=== PATIENT | female | born 1985 | race American Indian/Alaskan Native ===

== ENCOUNTER 2019-07-21 16:14 | Emergency (ER) | payer SELFPAY ==
[2019-07-21] MEDS ORDERED: IBUPROFEN 600 MG TAB PO ONE (17:54)
--- NOTE | 2019-07-21 17:56 | Emergency Department Report ---
Chief Complaint: Upper Respiratory Infection Stated Complaint: FLU SYM Time Seen by Provider: 07/21/19 17:48 - HPI History of Present Illness: 34 y.o. F. that presents to the ER with myalgia, fever, chills, and cough since yesterday. States 2 youngest children are sick with similar symptoms. Took OTC cold and flu medication for 1 day. Reports cough as dry. No significant PMH. Denies chest pain, SOB, wheezing, n/v/d, abdominal pain, or sore throat. - ROS Review of Systems: ROS: Stated complaint: Flu like symptoms Other details as noted in HPI Comment: All other systems reviewed and negative - Exam Vital Signs: Vital Signs 07/21/19 16:21 Temperature 100.0 F H Pulse Rate 128 H Respiratory 18 Rate Blood Pressure 108/71 O2 Sat by Pulse 97 Oximetry Vital Signs 07/21/19 07/21/19 07/21/19 16:21 17:53 19:30 Temperature 100.0 F H 101 F H 99 F Pulse Rate 128 H 113 H 100 H Respiratory 18 16 20 Rate Blood Pressure 108/71 Blood Pressure 139/76 [Left] O2 Sat by Pulse 97 96 97 Oximetry Physical Exam: - General Limitations: No Limitations General appearance: alert, in no apparent distress - Head Head exam: Present: atraumatic, normocephalic - Eye Eye exam: Present: normal appearance - ENT ENT exam: Present: turbinates congested with clear discharge, mucous membranes moist - Neck Neck exam: Present: normal inspection, full ROM. Absent: lymphadenopathy - Respiratory Respiratory exam: Present: normal lung sounds bilaterally. Absent: respiratory distress - Cardiovascular Cardiovascular Exam: Present: regular rate, normal rhythm. Absent: systolic murmur, diastolic murmur, rubs, gallop - GI/Abdominal GI/Abdominal exam: Present: soft, normal bowel sounds - Extremities Exam Extremities exam: Present: normal inspection - Back Exam Back exam: Present: normal inspection - Neurological Exam Neurological exam: Present: alert, oriented X3 - Psychiatric Psychiatric exam: Present: normal affect, normal mood - Skin Skin exam: Present: warm, dry, intact, normal color. Absent: rash MSE screening note: Focused history and physical exam performed. Due to findings the following was ordered: Analgesics Rapid flu ED Medical Decision Making - Medical Decision Making This is a 34 y.o. female that presents with flulike symptoms since yesterday. Slightly tachycardic and fever. Given analgesics. Tolerating p.o. fluids. Negative abdominal tenderness on exam. Obtain rapid flu and negative. There is low suspicion of pneumonia, bronchitis, or any other bacterial infections. Patient monitored for 1 hour. Temperature and heart rate is trending down. Treat outpatient with supportive care. Patient instructed to start taking NSAIDs. Increase fluid intake. Wash hands frequently. Follow-up with your primary care doctor. Patient discharged home stable with strict return instructions. ED Disposition for MSE Clinical Impression: Flu-like symptoms, Acute viral syndrome Disposition: TO HOME OR SELFCARE Is pt being admited?: No Condition: Stable Instructions: Viral Syndrome (ED) Additional Instructions: Increase fluid intake to prevent dehydration. Wash hands frequently. Take Tylenol or ibuprofen every 4-6 hours for relief of headache, fever, and body aches. Return to work after 24 hours of being fever free. Follow up with [facility] [employer] in 2-3 days if symptoms are not improving. Prescriptions: Benzonatate [Tessalon Perles] 100 mg PO Q8HR PRN #30 capsule PRN Reason: Cough Referrals: [facility] [Outside] - 3-5 Days [facility] [Outside] - 3-5 Days [facility] [Outside] - 3-5 Days Forms: Work/School Release Form(ED) Time of Disposition: 19:19
[2019-07-21 20:01] VITALS: BP 139/76
== END 2019-07-21 20:00 | disposition home or self-care (01) ==
LOC: ED 16:14
DX: B34.9 Viral infection, unspecified (principal); J11.1 Influenza due to unidentified influenza virus with other respiratory manifestations
CPT/HCPCS: 87400; 99283